=== PATIENT | male | born 1970 | race African-American/Black ===

== ENCOUNTER → 2019-04-02 | Outpatient (CLI) | payer OTHER ==
--- NOTE | 2019-04-02 09:46 | RAD ---
EXAM: CT ABDOMEN/PELVIS WITHOUT CONTRAST. HISTORY: Right flank pain and dysuria. TECHNIQUE: Computed tomography of the abdomen and pelvis was performed without intravenous contrast. COMPARISON: None. FINDINGS: Lung windows through the visualized portions of the bases reveal mild atelectasis. Bone windows reveal no suspicious lesions. A right renal cyst measures 3.0 cm. Another at the left upper pole measures 1.0 cm. There is urothelial thickening throughout the right ureter. There is no hydronephrosis. There are no renal or ureteral calculi. The prostate is moderately enlarged with a prominent median lobe impresses on the bladder base. There is also mild bladder wall thickening. The liver, gallbladder, pancreas, adrenal glands and spleen are unremarkable. There are no pathologically enlarged lymph nodes. A mostly fat density mass containing small calcifications in the left oblique musculature and tortuous veins and measures 8.3 x 2.2 cm transaxially. There is no small bowel obstruction. The appendix is dilated to 1.7 cm. There is no wall thickening or surrounding inflammation. IMPRESSION: 1. Urothelial thickening throughout the bladder and right ureter are consistent with ascending infection. No hydronephrosis or nephroureterolithiasis. 2. 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 Surgical consultation is suggested. 3. A mostly fat density mass in the left oblique musculature contains what appear to be phleboliths and tortuous venous channels. A benign lesion such as a hemangioma is favored. Ongoing clinical follow-up is recommended. *One or more of the following individualized dose reduction techniques were utilized for this examination: 1. Automated exposure control. 2. Adjustment of the mA and/or kV according to patient size. 3. Use of iterative reconstruction technique. Electronically signed by: Abeba Cassidy MD (04/02/2019 9:42 AM) [facility]
== END | disposition home or self-care (01) ==
LOC: CT 08:06
PROVIDERS: ATTEND Family Medicine
DX: N28.1 Cyst of kidney, acquired (principal); N40.0 Benign prostatic hyperplasia without lower urinary tract symptoms; J98.11 Atelectasis; Z79.899 Other long term (current) drug therapy
CPT/HCPCS: 74176

== ENCOUNTER → 2019-04-30 | Outpatient (CLI) | payer OTHER ==
[2019-06-07 14:16] LABS: BASO % 1 % (0-3); EOS # 0.1 x10^3/uL (0.0-0.7); EOS % 1 % (0-3); HEMATOCRIT 47.2 % (39.0-53.0); HEMOGLOBIN 14.9 g/dL (13.0-17.5); LYMPH # 1.4 x10^3/uL (1.0-4.8); LYMPH % 28 % (24-48); MEAN CORPUSCULAR HEMOGLOBIN 28 pg (25-35); MEAN CORPUSCULAR HGB CONC 32 g/dL (31-37); MEAN CORPUSCULAR VOLUME 88 fL (79-100); MONO # 0.5 x10^3/uL (0.0-1.1); MONO % 10 % (0-9); NEUT # 3.1 x10^3uL (1.8-7.7); NEUT % 61 % (31-73); PLATELET COUNT 159 x10^3/uL (140-400); RED BLOOD COUNT 5.35 x10^6/uL (4.30-5.70); RED CELL DISTRIBUTION WIDTH 13.1 % (11.5-14.5)
[2019-06-07 14:17] LABS: CALCIUM 9.1 mg/dL (8.5-10.1); CREATININE 1.5 mg/dL (0.7-1.3); GFR 60.2; POTASSIUM 4.4 mmol/L (3.5-5.1)
== END | disposition home or self-care (01) ==
LOC: LAB 17:48
PROVIDERS: ATTEND Family Medicine
DX: R53.1 Weakness (principal); N33 Bladder disorders in diseases classified elsewhere
CPT/HCPCS: 36415; 80048; 85025; 97802

== ENCOUNTER 2019-07-06 07:50 | Emergency (ER) | payer OTHER ==
[~2019-07-06] VITALS: Ht 188 cm; Wt 105.7 kg
[2019-07-06 07:59] VITALS: BP 159/85
--- NOTE | 2019-07-06 08:35 | PHYS DOC ---
Past History Past Medical History: No Pertinent History Past Surgical History: Other Additional Past Surgical Histo: back surgery; abd hernia repair; lazer surgery eyes Alcohol Use: None Drug Use: None Adult General Chief Complaint Chief Complaint: MULTIPLE COMPLAINTS HPI HPI 48-year-old male presents to the emergency department with primary complaints of urinary retention. Patient has a history of prostate hypertrophy has been on [place] max, recently placed on Proscar. He describes over the weekend he was not feeling well, went to outside emergency department on Friday and was diagnosed with urinary tract infection. Patient was given Macrobid and Zofran. He states he developed circumoral edema after taking Macrobid. He as well describes weakness associated with Flomax and Proscar and has not taken Flomax for a co uple days given recent PT. Today his complaints include that of urinary retention. Patient was able to void approximately 100 mL. He denies any nausea or vomiting at this time has had some diarrhea. Review of Systems Review of Systems Constitutional: + fever HENT: Denies nasal congestion or sore throat [] Respiratory: Denies cough or shortness of breath [] Cardiovascular: No additional information not addressed in HPI [] GI: No nausea, vomiting, + diarrhea : Denies dysuria or hematuria, difficulty starting urinary stream Musculoskeletal: Denies back pain or joint pain, NO CVA tenderness Integument: Denies rash or skin lesions [] Neurologic: generalized weakness Endocrine: Denies polyuria or polydipsia [] All other systems were reviewed and found to be within normal limits, except as documented in this note. Allergies Allergies Allergies Coded Allergies Type Severity Reaction Last Updated Verified No Known Drug Allergies 07/06/19 No Physical Exam Physical Exam Constitutional: Well developed, well nourished, no acute distress, non-toxic appearance. [] HENT: Normocephalic, atraumatic, bilateral external ears normal, oropharynx moist, no oral exudates, nose normal. [] Eyes: PERRLA, EOMI, conjunctiva normal, no discharge. [] Cardiovascular:Heart rate regular rhythm, no murmur [] Lungs & Thorax: Bilateral breath sounds clear to auscultation [] Abdomen: Bowel sounds normal, soft, no tenderness, no masses, no pulsatile mass es. [] Skin: Warm, dry, no erythema, no rash. [] Back: No tenderness, no CVA tenderness. [] Extremities: No tenderness, no cyanosis, no clubbing, ROM intact, no edema. [] Neurologic: Alert and oriented X 3, no focal deficits noted. [] Psychologic: Affect normal, judgement normal, mood normal. [] Current Patient Data Vital Signs Vital Signs Date Time Temp Pulse Resp B/P (MAP) Pulse Ox O2 Delivery O2 Flow Rate FiO2 07/06/19 07:59 97.9 77 20 98 Room Air Lab Results Laboratory Tests Test 07/06/19 08:45 07/06/19 08:49 White Blood Count 7.7 x10^3/uL Red Blood Count 4.17 x10^6/uL Hemoglobin 11.9 g/dL Hematocrit 37.6 % Mean Corpuscular Volume 90 fL Mean Corpuscular Hemoglobin 28 pg Mean Corpuscular Hemoglobin Concent 32 g/dL Red Cell Distribution Width 13.6 % Platelet Count 264 x10^3/uL Neutrophils (%) (Auto) 77 % Lymphocytes (%) (Auto) 13 % Monocytes (%) (Auto) 9 % Eosinophils (%) (Auto) 1 % Basophils (%) (Auto) 1 % Neutrophils # (Auto) 5.9 x10^3uL Lymphocytes # (Auto) 1.0 x10^3/uL Monocytes # (Auto) 0.7 x10^3/uL Eosinophils # (Auto) 0.1 x10^3/uL Basophils # (Auto) 0.1 x10^3/uL Segmented Neutrophils % 64 % Band Neutrophils % 3 % Lymphocytes % 20 % Atypical Lymphocytes % (Manual) 3 % Monocytes % 9 % Metamyelocytes % 1 % Platelet Estimate Adequate Sodium Level 140 mmol/L Potassium Level 4.1 mmol/L Chloride Level 104 mmol/L Carbon Dioxide Level 28 mmol/L Anion Gap 8 Blood Urea Nitrogen 17 mg/dL Creatinine 1.8 mg/dL Estimated GFR (Cockcroft-Gault) 48.8 BUN/Creatinine Ratio 9 Glucose Level 109 mg/dL Calcium Level 8.7 mg/dL Total Bilirubin 0.8 mg/dL Aspartate Amino Transf (AST/SGOT) 40 U/L Alanine Aminotransferase (ALT/SGPT) 58 U/L Alkaline Phosphatase 70 U/L Total Protein 7.2 g/dL Albumin 3.4 g/dL Albumin/Globulin Ratio 0.9 Urine Collection Type Unknown Urine Color Marielena Urine Clarity Hazy Urine pH 8.0 Urine Specific [place] 1.015 Urine Protein 30 mg/dl Urine Glucose (UA) Neg mg/dL Urine Ketones (Stick) Neg mg/dL Urine Blood Neg Urine Nitrite Neg Urine Bilirubin Neg Urine Urobilinogen Dipstick 0.2 mg/dL Urine Leukocyte Esterase Neg Urine RBC Rare /HPF Urine WBC 5-10 /HPF Urine Squamous Epithelial Cells Occ /LPF Urine Bacteria Few /HPF Urine Yeast /HPF Urine Sperm Present /HPF EKG EKG [] Radiology/Procedures Radiology/Procedures [] Course & Med Decision Making Course & Med Decision Making Pertinent Labs and Imaging studies reviewed. (See chart for details) Patient presents to the emergency department with complaints of urinary retention. Patient was able to probe approximately 100 mL initially upon arrival however further evaluation in the ER, patient had approximately 500 mL of urine in his bladder. Initial evaluation with laboratory studies was unremarkable, urinalysis negative for acute UTI, white blood cell count within normal limits. She states he has not been taking his Flomax, he did take one in the emergency department. She did have improved urine output during his ER visit. Crit was mildly elevated at 1.8. He did not finish the full course of antibiotics given the concern for allergic reaction, Rx provided upon discharge. Dragon Disclaimer Dragon Disclaimer This electronic medical record was generated, in whole or in part, using a voice recognition dictation system. Departure Departure: Impression: Primary Impression: Urinary retention due to benign prostatic hyperplasia Disposition: 01 HOME, SELF-CARE Condition: STABLE Referrals: GENEVA CLARKE MD (PCP) Patient Instructions: Urinary Retention, Acute, Male, [id number] Scripts Cephalexin (KEFLEX) 500 Mg Capsule 2 CAP PO Q12HR for infection for 5 Days, #20 CAP Prov: JUNIOR GRAHAM MD 07/06/19 JUNIOR GRAHAM MD Jul 06, 2019 08:35
[2019-07-06 09:22] LABS: ALBUMIN 3.4 g/dL (3.4-5.0); ALBUMIN/GLOBULIN RATIO 0.9 (1.0-1.7); CALCIUM 8.7 mg/dL (8.5-10.1); CREATININE 1.8 mg/dL (0.7-1.3); GFR 48.8; POTASSIUM 4.1 mmol/L (3.5-5.1); TOTAL BILIRUBIN 0.8 mg/dL (0.2-1.0); TOTAL PROTEIN 7.2 g/dL (6.4-8.2)
[2019-07-06 09:25] LABS: BASO # 0.1 x10^3/uL (0.0-0.2); BASO % 1 % (0-3); EOS # 0.1 x10^3/uL (0.0-0.7); EOS % 1 % (0-3); HEMATOCRIT 37.6 % (39.0-53.0); HEMOGLOBIN 11.9 g/dL (13.0-17.5); LYMPH % 13 % (24-48); MEAN CORPUSCULAR HEMOGLOBIN 28 pg (25-35); MEAN CORPUSCULAR HGB CONC 32 g/dL (31-37); MEAN CORPUSCULAR VOLUME 90 fL (79-100); MONO # 0.7 x10^3/uL (0.0-1.1); MONO % 9 % (0-9); NEUT # 5.9 x10^3uL (1.8-7.7); NEUT % 77 % (31-73); PLATELET COUNT 264 x10^3/uL (140-400); RED BLOOD COUNT 4.17 x10^6/uL (4.30-5.70); RED CELL DISTRIBUTION WIDTH 13.6 % (11.5-14.5); WHITE BLOOD COUNT 7.7 x10^3/uL (4.0-11.0)
[2019-07-06 09:41] LABS: BACTERIA,URINE FEW /HPF (0-FEW); BILIRUBIN,URINE NEG (NEG); CLARITY,URINE HAZY; COLOR,URINE AMBER; GLUCOSE,URINE NEG (NEG); NITRITE,URINE NEG (NEG); RBC,URINE RARE /HPF (0-2); SPERM,URINE PRESENT /HPF; SQUAMOUS EPITHELIAL CELL,UR OCC /LPF; UROBILINOGEN,URINE 0.2 mg/dL (0.2 mg/dL)
[2019-07-06 10:01] LABS: % ATYL 3 % (0-0); % BANDS 3 % (0-9); % LYMPHS 20 % (24-48); % METAS 1 % (0-0); % MONOS 9 % (0-10); % SEGS 64 % (35-66); PLT ESTIMATE ADEQUATE (ADEQUATE)
[2019-07-06] MEDS ORDERED: CEPH-264 PO (10:10)
== END 2019-07-06 11:15 | disposition home or self-care (01) ==
LOC: ER 07:50
DX: N40.1 Benign prostatic hyperplasia with lower urinary tract symptoms (principal); R33.8 Other retention of urine
CPT/HCPCS: 36415; 80053; 81001; 85007; 85025; 87086; 99285

== ENCOUNTER → 2019-09-07 | Outpatient (CLI) | payer OTHER ==
[~2019-09-07] MED LIST: CEPH-264 PO
--- NOTE | 2019-09-08 10:56 | RAD ---
Renal ultrasound 09/08/2019 INDICATION: Enlarged prostate. Evaluate bladder. Post void residual evaluation. COMPARISON STUDY: CT of the abdomen and pelvis without contrast April 02, 2019 FINDINGS: The right kidney measures 11.2 x 4.9 x 6.0 cm. There is a 2.9 cm cyst within the superior pole the right kidney. Right kidney is otherwise sonographically unremarkable. Mild bladder wall thickening is seen. Prevoid bladder volume 287 cc. The bladder appears incompletely distended at this volume. Post void volume 180 cc. The prostate is incompletely visualized. The prostate can be seen projecting into the inferior aspect of the bladder. The left kidney measures 11.9 x 7.2 x 6.4 cm. There is a 1.5 cm hypoechoic, likely cystic lesion in the superior pole left kidney. This is identified on prior noncontrast CT exam and most consistent with a cyst on that study. Impression: 1. Possible mild bladder wall thickening with increased post void residual 2. Renal cysts bilaterally 3. Superior aspect of the prostate projecting into the inferior bladder. Probable prostamegaly. Electronically signed by: Ananth Gipson MD (09/08/2019 10:53 AM) [id number]
== END | disposition home or self-care (01) ==
LOC: US 13:29
PROVIDERS: ATTEND Urology
DX: N28.1 Cyst of kidney, acquired (principal); N40.1 Benign prostatic hyperplasia with lower urinary tract symptoms
CPT/HCPCS: 76770

== ENCOUNTER → 2020-06-09 | Outpatient (CLI) | payer OTHER ==
[~2020-06-09] MED LIST changes: +IBUP800T19 PO
== END | disposition home or self-care (01) ==
LOC: LAB 09:40
PROVIDERS: ATTEND Registered Nurse
DX: Z01.818 Encounter for other preprocedural examination (principal); Z11.59 Encounter for screening for other viral diseases; Z12.11 Encounter for screening for malignant neoplasm of colon
CPT/HCPCS: U0003-CS

== ENCOUNTER → 2020-06-13 | Day surgery (SDC) | payer OTHER ==
[~2020-06-13] MED LIST changes: +IPRATRPIUM/ALBUTEROL 0.5/2.5MG 3 ML NEBU. NEB PRN; +IV RINGERS SOLUTION,LACTATED 1,000 ML IV SCH; +MIDAZOLAM HCL PF 2 MG/2 ML VIAL. IV ONE; +ONDANSETRON PF 4 MG/2 ML VIAL. IV PRN; +PROPOFOL 10,000 MCG/ML (20ML) VIAL IV ONE
[2020-06-13 12:06] VITALS: BP 122/78
--- NOTE | 2020-06-15 14:11 | PATHOLOGY ---
[facility] Accession Number: [id number] . 01 Material submitted: . PART A: sigmoid colon - SIGMOID POLYP PART B: cecum - CECAL NODULE BX PART C: rectum - RECTAL POLYP . 02 Diagnosis: A. Colon biopsy, sigmoid polyp: - Tubular adenoma. . B. Colon biopsies, cecal nodule: - Segments of colonic mucosa focally containing a basal lymphoid aggregate. . C. Colorectal biopsy, rectum: - Active chronic proctitis, moderate, without granulomas or specific features. (JPM:blair; 06/15/2020) S 06/15/2020 1356 Local . 02 Comment: Sections of the sigmoid colon biopsy reveal a tubular adenoma showing no high grade dysplasia or evidence of malignancy. . Sections of the cecal nodule biopsy reveal segments of colonic mucosa, one of which contains a basally situated lymphoid aggregate comprised of small lymphocytes showing crush artifactual changes. The findings could represent appendiceal mucosal prolapse. I cannot rule out the possibility of a submucosal lesion such as a submucosal lipoma. . Sections of the rectal biopsy show moderate active chronic inflammation with focal acute cryptitis. There are no granulomas or specific features. The findings are suggestive of chronic inflammatory bowel disease. There is no dysplasia or evidence of malignancy. (JPM:blair 06/15/2020) . 02 Electronically signed: . Tadeo Alonso MD, Pathologist NPI- [id number] . 01 Gross description: . A. The specimen is received in formalin, labeled "Neeraj, Juliano, sigmoid polyp" and consists of a fragment of pink-mcfarland tissue measuring 0.5 x 0.4 x 0.3 cm which is entirely submitted in A1. . B. The specimen is received in formalin, labeled "Pickard, Juliano, cecal nodule" and consists of 3 fragments of pink-mcfarland tissue measuring between 0.2 x 0.1 cm and 0.3 x 0.2 cm which are entirely submitted in B1. . C. The specimen is received in formalin, labeled "Pickard, Juliano, rectal BX" and "rectal polyp" per requisition. Received is a fragment of mcfarland tissue measuring 0.5 x 0.4 cm which is entirely submitted in C1. (SDY; 06/14/2020) SYU/SYU 06/14/2020 1017 Local . 02 Pathologist provided ICD-10: D12.5, K62.89 . 02 CPT . 857384, 655431, 599229 Specimen Comment: A courtesy copy of this report has been sent to [phone], [phone] Specimen Comment: [id number] Specimen Comment: Report sent to / DR MOJICA Performed at: 01 [facility] [address] [facility] [address], [place] [id number] MD Rolando Mejía MD Phone: [phone] Performed at: 02 [facility] [address] [place], [place] [id number] MD Tadeo Alonso MD Phone: [phone]
== END | disposition home or self-care (01) ==
LOC: SURG 10:03
PROVIDERS: ATTEND Emergency Medicine
DX: Z12.11 Encounter for screening for malignant neoplasm of colon (principal); K63.89 Other specified diseases of intestine; D12.5 Benign neoplasm of sigmoid colon; K51.20 Ulcerative (chronic) proctitis without complications; Z98.890 Other specified postprocedural states; Z79.899 Other long term (current) drug therapy
CPT/HCPCS: 45380; 45385; J2704; J7120; 88305

== ENCOUNTER → 2020-06-27 | Outpatient (CLI) | payer OTHER ==
[2020-06-13 12:06] VITALS: BP 122/78
[~2020-06-27] MED LIST changes: +IOHEXOL 240 MG/ML 50ML VIAL. ONE; -IPRATRPIUM/ALBUTEROL 0.5/2.5MG 3 ML NEBU. NEB PRN; -IV RINGERS SOLUTION,LACTATED 1,000 ML IV SCH; -MIDAZOLAM HCL PF 2 MG/2 ML VIAL. IV ONE; -ONDANSETRON PF 4 MG/2 ML VIAL. IV PRN; -PROPOFOL 10,000 MCG/ML (20ML) VIAL IV ONE
--- NOTE | 2020-06-27 16:27 | RAD ---
EXAM: CT Abdomen and Pelvis without IV contrast INDICATION: Reason: COLITIS COLON POLYP ABNORMAL COLONOSCOPY / Spl. Instructions: 3 hr delay after intial scan - Gave omni 240 30 ml oral / History: TECHNIQUE: Multi-detector row CT images were acquired from the lung bases through the abdomen and pelvis without the use of IV contrast. Patient was initially imaged at 1 hour post oral contrast administration and then brought back for additional imaging approximately 2 hours later. Sagittal and coronal images were acquired from the transaxial data. All CT scans performed at this facility utilize dose optimization techniques as appropriate to the exam, including the following: Automated exposure control and adjustment of the mA and/or KV according to patient size (this includes techniques or standardized protocols for targeted exams where dose is indication/reason for exam). ORAL CONTRAST: Administered COMPARISON: None FINDINGS: The absence of IV contrast limits evaluation of soft tissue pathology. LOWER CHEST: Unremarkable LIVER: Unremarkable BILIARY SYSTEM: Gallbladder is unremarkable. Bile ducts are not dilated. PANCREAS: Unremarkable SPLEEN: Unremarkable ADRENALS: Unremarkable KIDNEYS & URETERS: Superior pole right renal 2.7 cm cyst and mid pole right 5 cm low-density lesions compatible with cysts are unchanged and require no specific additional imaging follow-up. There is mild wall thickening in the proximal right ureter and right renal pelvis, similar to prior. BLADDER: Underdistended distended with mild diffuse bladder wall thickening slightly more conspicuous in the interval. No perivesical soft tissue stranding. REPRODUCTIVE ORGANS: Unremarkable GASTROINTESTINAL: Initial scan showed opacification of small bowel loops without complete opacification of the distal small bowel loops and no opacification whatsoever of the lumen of the large bowel. On additional delayed 2 hours imaging (3 hours post oral contrast administration), partial opacification of large bowel lumen was achieved. No filling defects in the large bowel lumen suspicious for dominant mass identified on limited assessment. Appendix is not well seen but there are no findings of acute appendicitis. Instead, a low-density tubular structure near the appendiceal origin remains present, measuring 4.3 x 2.0 cm on axial image 90 of series 2 and potentially reflecting an appendiceal mucocele. MESENTERY/PERITONEUM/RETROPERITONEUM: No soft tissue stranding in the mesocolon suggest a transmural pathologic process. No soft tissue stranding in the mesentery, no mesenteric nodularity, and no ascites. VASCULAR: Unremarkable LYMPH NODES: No adenopathy OSSEOUS & SOFT TISSUES: Similar fatty mass between the internal and external oblique muscles of the left lower quadrant abdominal wall containing multiple tortuous vessels and phleboliths, suggestive of a slow flow vascular lesion hemangioma. Degenerative changes at the lumbosacral junction are redemonstrated. IMPRESSION: 1. Incomplete study of the large bowel showing no evidence of bowel perforation, obstruction or acute inflammation on noncontrast CT. Note that CT colonography is the imaging study of choice for screening for colon cancer if indicated, with barium enema a widely available alternative. No findings on this examination suggestive of advanced local regional or metastatic disease, with exam limited by lack of IV contrast. 2. There persists a fluid density structure in the location of the appendix for which an appendiceal mucocele cannot be excluded. Surgical follow-up recommended. 3. Wall thickening in the right renal pelvis and ureter remains present (or has recurred) and is suspicious for urothelial inflammation. Correlate clinically. Electronically signed by: Fabrice Martin MD (06/27/2020 4:24 PM) [id number]
== END | disposition home or self-care (01) ==
LOC: CT 09:27
PROVIDERS: ATTEND Emergency Medicine
DX: Z12.11 Encounter for screening for malignant neoplasm of colon (principal); K52.9 Noninfective gastroenteritis and colitis, unspecified; K63.5 Polyp of colon; N28.9 Disorder of kidney and ureter, unspecified; N28.1 Cyst of kidney, acquired; R19.04 Left lower quadrant abdominal swelling, mass and lump; M47.817 Spondylosis without myelopathy or radiculopathy, lumbosacral region; I87.8 Other specified disorders of veins
CPT/HCPCS: 74176

== ENCOUNTER → 2021-01-15 | Outpatient (CLI) | payer OTHER ==
[2020-06-13 12:06] VITALS: BP 122/78
[~2021-01-15] MED LIST changes: -IOHEXOL 240 MG/ML 50ML VIAL. ONE
--- NOTE | 2021-01-15 09:21 | RAD ---
XR ABDOMEN 2V History: Diffuse abdominal pain, headache. Comparison: CT abdomen and pelvis 06/27/2020 Technique: Supine and upright radiographs of the abdomen. Findings: Bowel gas pattern: Normal. Free air: None. Abnormal calcifications: A couple redemonstrated pelvic phleboliths. Bones: Degenerative changes of the lower lumbar spine and hips. Other: None. Impression: 1. No acute abdominopelvic findings. Electronically signed by: Олег Peralta MD (01/15/2021 9:18 AM) [facility]
[2021-01-15 10:17] LABS: BASO % 0 % (0-3); EOS % 0 % (0-3); HEMATOCRIT 46.8 % (39.0-53.0); HEMOGLOBIN 14.8 g/dL (13.0-17.5); LYMPH # 1.8 x10^3/uL (1.0-4.8); LYMPH % 17 % (24-48); MEAN CORPUSCULAR HEMOGLOBIN 28 pg (25-35); MEAN CORPUSCULAR HGB CONC 32 g/dL (31-37); MEAN CORPUSCULAR VOLUME 88 fL (79-100); MONO # 1.6 x10^3/uL (0.0-1.1); MONO % 14 % (0-9); NEUT # 7.7 x10^3uL (1.8-7.7); NEUT % 69 % (31-73); PLATELET COUNT 174 x10^3/uL (140-400); RED BLOOD COUNT 5.35 x10^6/uL (4.30-5.70); RED CELL DISTRIBUTION WIDTH 13.9 % (11.5-14.5); WHITE BLOOD COUNT 11.2 x10^3/uL (4.0-11.0)
[2021-01-15 10:37] LABS: ALBUMIN 3.4 g/dL (3.4-5.0); ALBUMIN/GLOBULIN RATIO 0.9 (1.0-1.7); CALCIUM 8.9 mg/dL (8.5-10.1); CREATININE 1.4 mg/dL (0.7-1.3); GFR 64.6; POTASSIUM 4.4 mmol/L (3.5-5.1); TOTAL BILIRUBIN 1.8 mg/dL (0.2-1.0); TOTAL PROTEIN 7.4 g/dL (6.4-8.2)
[2021-01-15 12:16] LABS: SEDIMENTATION RATE 11 (0-15)
== END ==
LOC: PMG 08:09
PROVIDERS: ATTEND Physician Assistant
DX: R51.9 Headache, unspecified (principal); M47.816 Spondylosis without myelopathy or radiculopathy, lumbar region; I87.8 Other specified disorders of veins
CPT/HCPCS: 36415; 74019; 80053; 82150; 83690; 85025; 85651